=== PATIENT | female | born 1945 | race Caucasian/White ===

== ENCOUNTER 2024-06-10 16:46 | Emergency (ER) | payer MEDICARE, OTHER, SELFPAY ==
[2024-06-10] VITALS (12 sets, daily range): BP systolic 125–157; BP diastolic 71–101; BMI 25.4
[2024-06-10] MEDS: ZOFRAN 4 MG IV (17:24)
[2024-06-10] MEDS: DILAUDID 0.5 MG IV (17:24)
--- NOTE | 2024-06-10 17:29 | ED.MUSCINJ ---
HPI-Injury
<Ervin Gibson PA-C - Last Filed: 06/10/24 19:10>
General
Chief Complaint: Musculo-Skeletal Complaint
Source: patient
Exam Limitations: none
Time Seen by Provider: 06/10/24 17:15
History of Present Illness-Injury
Initial Injury comments:
78-year-old [id number] female presents complaining of right wrist pain and deformity starting today. She tripped while going for a walk and fell forward. She did not hit her head. She is not anticoagulated. She is healthy otherwise.
Phy Exam
<Ervin Gibson PA-C - Last Filed: 06/10/24 19:10>
Physical Exam
Physical Exam:
General: Well-appearing female no acute respiratory distress
Musculoskeletal exam: Deformity and swelling noted to the right wrist. She is tender diffusely about the wrist. The right elbow is nontender.
Neurologic exam: Alert good sensation to right hand
Vascular: 2+ radial pulse right wrist with brisk Apley refill to the finger
Injury Course
<Ervin Gibson PA-C - Last Filed: 06/10/24 19:10>
Orders/Labs/Results
Orders:
Orders
06/10/24 16:53
CR Forearm - Right 2 View Urgent
Comment:
Reason For Exam: fall, deformity
CR Wrist - Right Min 3 Views Urgent
Comment:
Reason For Exam: fall, deformity
06/10/24 17:21
HYDROmorphone [Dilaudid] 0.5 mg IV NOW STA
Ondansetron Injectable [Zofran] 4 mg IV NOW STA
06/10/24 17:36
Propofol [Diprivan] 20 ml .ROUTE .STK-MED
06/10/24 18:20
CR Wrist - Right Min 2 Views Urgent
Reason For Exam: post reduction
<Andre Hilario MD - Last Filed: 06/10/24 18:39>
Orders/Labs/Results
Orders:
Orders
06/10/24 16:53
CR Forearm - Right 2 View Urgent
Comment:
Reason For Exam: fall, deformity
CR Wrist - Right Min 3 Views Urgent
Comment:
Reason For Exam: fall, deformity
06/10/24 17:21
HYDROmorphone [Dilaudid] 0.5 mg IV NOW STA
Ondansetron Injectable [Zofran] 4 mg IV NOW STA
06/10/24 17:36
Propofol [Diprivan] 20 ml .ROUTE .STK-MED
06/10/24 18:20
CR Wrist - Right Min 2 Views Urgent
Reason For Exam: post reduction
Procedures
<Ervin Gibson PA-C - Last Filed: 06/10/24 19:10>
Moderate Sedation
ASA Risk Score: Class I
Chart and allergies reviewed: Yes
Consent for anesthesia obtained: Yes
Time out completed (validating right patient & procedure): Yes
Moderate Sedation Start Time(when first medication is given): 18:13
History of difficult intubation: No
Airway free of obstruction: Yes
Patient has a gag reflex: Yes
Patient is able to open mouth: No
Patient has no dentures: Yes
Patient has no loose teeth: Yes
Medication administered by Provider during Moderate Sedation: IV Propofol (mg)
Total dose administered: 80
Time drug administered: 18:13
Moderate Sedation Procedure End Time: 18:25
<Ervin Gibson PA-C - Last Filed: 06/10/24 19:10>
MDM/Problems Addressed
Differential Diagnosis Includes:
Right wrist deformity after trip and fall. Consider fracture versus dislocation
I personally visualized x-rays of the right wrist which demonstrate 100% displaced and angulated distal radius fracture. No obvious associated ulnar fracture.
Patient was given medicine for pain initially and nausea however pain is too significant and will not tolerate reduction without sedation. Send obtained for sedation and reduction
<Ervin Gibson PA-C - Last Filed: 06/10/24 19:10>
*Critical Care Note
Total Time (30-74mins, 75-104mins- exclusive of procedures): Not Applicable
<Ervin Gibson PA-C - Last Filed: 06/10/24 19:10>
Update Note
Update Note:
Written consent obtained for moderate sedation and closed reduction of the right wrist. Sedation performed by emergency room attending. Reduction performed by myself with longitudinal traction hyperextension of the wrist and dorsal pressure.
Visually the wrist look much better upon visual inspection. A sugar-tong splint was applied with cast padding 2 inch OCL and Chaka bandages. Postreduction films demonstrated improved alignment of the fracture. Patient feeling better. Discussed
with orthopedics who recommended follow up as outpatient.
ED Attending Note
<Ervin Gibson PA-C - Last Filed: 06/10/24 19:10>
-
Portions of this chart may have been created with voice recognition software.� Occasional wrong word or��sound alike� substitutions may have occurred due to the inherent limitations of voice recognition software.
<Andre Hilario MD - Last Filed: 06/10/24 18:39>
ED Attending Note
Patient seen and examined by attending physician: Yes
I performed the substantive portion of visit, reviewed & personally made and approve the management plan that is documented in note by myself or FRANCISCO.: Yes
ED Attending Note:
FOOSH injury. Deformity of right wrist. No other injury or complaint. No head injury. No neck pain. No chest pain.
Medical screening done for sedation. No dentures or airway issues. Lungs clear and equal. Heart regular rate and rhythm. No chest wall tenderness. Normocephalic atraumatic. Neck nontender. Clear deformity to the right wrist. Motor or sensory
neurovascular intact.
Moderate sedation with propofol 80 mg, reduction done by the physician assistant research scientist plus myself. Good capillary refill postreduction. Rings were removed. Much improved by x-ray. Will require orthopedic follow-up however
Discharge Plan
Departure
Patient Disposition: Home (Routine Discharge)
Date of Disposition: 06/10/24
Time of Disposition: 19:06
Patient with high blood pressure during this ER visit?: No
Discharge Problem:
Distal radius fracture, right
Instructions: Muscle and Bone Pain (DC), MODERATE SEDATION ADULT
Referrals:
Yesi Preston MD [Family Provider] -
Ta Balderas MD [Active] -
Activity Restrictions/Additional Instructions:
Keep splint on and dry. Elevate for swelling. Use ibuprofen or Tylenol for pain. Follow-up with orthopedics. Call their office tomorrow morning to set an appointment
Interventions
Interventions:
*Risk Screen - Suicide Last Done: 06/10/24 16:49
*General Assessment Last Done: 06/10/24 16:49
*Neglect/Abuse Screening Last Done: 06/10/24 16:49
ED-Musculoskeletal Assessment Last Done: 06/10/24 17:58
Discharge Date and Time
Print Language: CHINESE
== END 2024-06-10 19:45 | disposition home or self-care (01) ==
LOC: EMR 16:46
PROVIDERS: EMERGENCY PHYSICIAN Emergency Medicine; FAMILY PHYSICIAN Student in an Organized Health Care Education/Training Program
DX: S52.591A Other fractures of lower end of right radius, initial encounter for closed fracture (principal); W01.0XXA Fall on same level from slipping, tripping and stumbling without subsequent striking against object, initial encounter
CPT/HCPCS: 25605; 99285; 99152; 96374; 96375; 73090; 73100; 73110

== ENCOUNTER → 2024-06-14 11:10 | Outpatient (REF) | payer MEDICARE, OTHER, SELFPAY ==
[2024-06-14 12:35] LABS: % Basophils 0.8 % (0-2); % Eosinophils 0.8 % (0-6); % Immature Granulocytes 0.4 % (0-0.5); % Lymphocytes 20.8 % (20.5-51.1); % Monocytes 7.2 % (1.7-9.3); Absolute Basophils 0.1 10^3/uL (0-0.2); Absolute Eosinophils 0.1 10^3/uL (0-0.7); Absolute Lymphocytes 1.5 10^3/uL (1.2-3.4); Absolute Monocytes 0.5 10^3/uL (0.1-0.6); Absolute Neutrophils 5.1 10^3/uL (1.4-6.5); Hematocrit 41.4 % (37.0-47.0); Hemoglobin 13.3 g/dL (12.0-16.0); Mean Corp Hgb Conc. 32.1 g/dL (33.0-37.0); Mean Corpuscular Hgb 30.4 pg (27.0-31.0); Mean Corpuscular Volume 94.7 fL (81.0-99.0); Mean Platelet Volume 9.3 fL (7.4-10.4); Nucleated Red Blood Cells % 0 %; Platelet Count 271 10^3/uL (130-400); Red Blood Cell Count 4.37 10^6/uL (4.20-5.40); White Blood Cell Count 7.3 10^3/uL (4.8-10.8)
[2024-06-14 13:14] LABS: Blood Urea Nitrogen 18 mg/dl (7-17); Calcium 9.9 mg/dl (8.4-10.2); Carbon Dioxide 26 mmol/L (22-30); Chloride 101 mmol/L (98-107); Glucose 98 mg/dl (70-99); Potassium 4.5 mmol/L (3.5-5.1); Sodium 138 mmol/L (135-145); eGFR > 60.00
== END ==
LOC: REG 11:10
PROVIDERS: ATTENDING PHYSICIAN Orthopaedic Surgery; FAMILY PHYSICIAN Student in an Organized Health Care Education/Training Program
DX: Z01.818 Encounter for other preprocedural examination (principal)
CPT/HCPCS: 36415; 80048; 85025; 93005

== ENCOUNTER 2024-06-18 06:43 | Day surgery (SDC) | payer MEDICARE, OTHER, SELFPAY ==
[2024-06-18 10:28] VITALS: BMI 26.0
--- NOTE | 2024-06-18 10:33 | PTCARENOTE ---
Dr. Lewis aware that patient rates high as DVT risk. No further orders.
[2024-06-18 10:34] VITALS: BP 152/103
[2024-06-18 10:37] VITALS: BMI 26.0
--- NOTE | 2024-06-18 10:48 | PTCARENOTE ---
Anesthesia aware that patient can not get ring off. Tried to remove ring and can not. Patient is alwo ordered a wipe to the R arm but patient has large sanchez wrap on. Dr. Marcum notified and he stated by tiger text if patient has pain to leave the
dressing on and they will clean it in the OR.
[2024-06-18] MEDS: CELEBREX 200 MG PO (10:52)
[2024-06-18] MEDS: TYLENOL 1000 MG PO (10:52)
[2024-06-18] MEDS: EMEND 40 MG PO (10:55)
[2024-06-18] MEDS: NORMOSOL-R/PLASMALYTE-A 1000 IV (11:04)
[2024-06-18 13:00] VITALS: BP 104/59; BP 152/103
[2024-06-18 13:15] VITALS: BP 108/75
[2024-06-18 13:55] VITALS: BP 132/72
[2024-06-18 14:25] VITALS: BP 125/83
[2024-06-18 14:55] VITALS: BP 144/84
== END 2024-06-18 15:20 | disposition home or self-care (01) ==
LOC: SDS 06:43
PROVIDERS: ATTENDING PHYSICIAN Orthopaedic Surgery
DX: S52.551A Other extraarticular fracture of lower end of right radius, initial encounter for closed fracture (principal); W19.XXXA Unspecified fall, initial encounter; Z88.5 Allergy status to narcotic agent; Z88.8 Allergy status to other drugs, medicaments and biological substances
CPT/HCPCS: 25607; C1713

== ENCOUNTER → 2024-07-31 09:59 | Outpatient (REF) | payer MEDICARE, OTHER, SELFPAY | LOC: HWEVLT 09:59 | PROVIDERS: ATTENDING PHYSICIAN Radiology Diagnostic Radiology | DX: I83.893 Varicose veins of bilateral lower extremities with other complications (principal) | CPT/HCPCS: 93970 ==

== ENCOUNTER 2025-02-01 07:56 | Emergency (ER) | payer SELFPAY ==
[2025-02-01 07:58] VITALS: BP 145/84
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
[2025-02-01] MEDS: TYLENOL 650 MG PO (09:16)
[2025-02-01] MEDS: KEFLEX 500 MG PO (11:28)
== END 2025-02-01 11:48 | disposition home or self-care (01) ==
LOC: EMR 07:56
PROVIDERS: EMERGENCY PHYSICIAN Emergency Medicine; FAMILY PHYSICIAN Family Medicine
DX: S80.11XA Contusion of right lower leg, initial encounter (principal); S80.12XA Contusion of left lower leg, initial encounter; V43.52XA Car driver injured in collision with other type car in traffic accident, initial encounter; S22.31XA Fracture of one rib, right side, initial encounter for closed fracture; E78.5 Hyperlipidemia, unspecified
CPT/HCPCS: 99285; 73590; 93970

== ENCOUNTER → 2025-02-15 14:14 | Outpatient (REF) | payer OTHER, SELFPAY | LOC: RAD 14:14 | PROVIDERS: ATTENDING PHYSICIAN Student in an Organized Health Care Education/Training Program; FAMILY PHYSICIAN Family Medicine | DX: I73.9 Peripheral vascular disease, unspecified (principal); M79.661 Pain in right lower leg | CPT/HCPCS: 93970 ==

== ENCOUNTER → 2025-05-31 14:34 | Outpatient (REF) | payer OTHER, SELFPAY | LOC: RAD 14:34 | PROVIDERS: ATTENDING PHYSICIAN Student in an Organized Health Care Education/Training Program; FAMILY PHYSICIAN Student in an Organized Health Care Education/Training Program | DX: I87.2 Venous insufficiency (chronic) (peripheral) (principal) | CPT/HCPCS: 93970 ==